=== PATIENT | female | born 1945 | race Caucasian/White ===

== ENCOUNTER → 2023-10-14 14:36 | Outpatient (REF) | payer OTHER, SELFPAY | LOC: WDC 14:36 | PROVIDERS: ATTENDING PHYSICIAN Obstetrics & Gynecology; FAMILY PHYSICIAN Internal Medicine | DX: Z12.31 Encounter for screening mammogram for malignant neoplasm of breast (principal) | CPT/HCPCS: 77063; 77067; 77080 ==

== ENCOUNTER 2023-11-15 10:57 | Emergency (ER) | payer OTHER, SELFPAY ==
[2023-11-15] VITALS (28 sets, daily range): BP systolic 74–124; BP diastolic 41–86
--- NOTE | 2023-11-15 11:44 | ED.GENMED ---
History of Present Illness
<Moni Ramirez MD, Resident - Last Filed: 11/15/23 15:51>
General
Chief Complaint: Heart Rate Problem
Source: patient
Time Seen by Provider: 11/15/23 11:18
History of Present Illness
History of Present Illness:
The patient is a 77-year-old female who has a PMH of paroxysmal A. fib previously on Eliquis currently. (follows with Dr. Julien for cardiology) She presented to ER today complaining from having AF on her apple watch, feeling some lightheaded
and shortness of breath for last couple of days since November 10. She reported that she had AF warnings her apple watch a few times in a day since November 10. She also reported feeling tired and not feeling like herself. She reported she was seen by her
ocean freight forwarder 2 weeks ago and her results were clean at that time and was scheduled for a routine ECHO on December 09. She has this problem for last 2,5 years after she had knee surgery and was hospitalized in April 2023 for same reason. She did
not receive any cardioversion before. Additionally, she reported that she gave a call to her ocean freight forwarder and was recommended to start retaking her metoprolol. ( Reports he takes half of 5 or 10 mg of metoprolol) She also started to take Eliquis
regularly BID for last couple days. It was decided to contact her ocean freight forwarder to discuss.
If applicable-neuro sx onset
Date of onset of symptoms: 12/12/23
Phy Exam
<Moni Ramirez MD, Resident - Last Filed: 11/15/23 15:51>
General Physical Exam
General Presentation: well appearing and moderate distress
General age: appears stated age
General Skin: warm
General Habitus: normal
General Mental: alert
General Hydration: appears well hydrated
Cardiovascular Exam
Cardiovascular Exam: no edema and no JVD
Pulmonary Exam
Pulmonary Exam: lungs clear, no rales, no crackles, no stridor and no wheezing
Neurological Exam
Neurological Exam: alert, oriented x3, CN II-XII intact, no motor deficits, no sensory deficits and speech normal
Musculoskeletal Exam
Musculoskeletal Exam: full ROM and no edema
Course
<Moni Ramirez MD, Resident - Last Filed: 11/15/23 15:51>
Orders/Labs/Results
Orders:
Orders
11/15/23 11:03
EKG [Electrocardiogram (*1)] Urgent
Reason for Study: Palpitations
EKG- Treatment ONCE
11/15/23 12:55
0.9% Sodium Chloride 1000 ml [Nss] 1,000 ml IV BOLUS
11/15/23 13:06
Propofol [Diprivan] 20 ml .ROUTE .STK-MED
11/15/23 13:26
EKG [Electrocardiogram (*1)] Urgent
Reason for Study: Atrial Fibrillation
EKG- Treatment ONCE
11/15/23 13:58
Basic Metabolic Panel Urgent
Complete Blood Count/No Diff Urgent
11/15/23 14:59
0.9% Sodium Chloride 1000 ml [Nss] 1,000 ml IV BOLUS
Abnormal Lab Results
11/15/23
13:58
Hgb 11.6 L g/dL
(12.0-16.0)
Hct 34.1 L %
(37.0-47.0)
RDW 14.6 H %
(11.5-14.5)
MPV 10.8 H fL
(7.4-10.4)
Chloride 109 H mmol/L
(98-107)
BUN 24 H mg/dl
(7-17)
11/15/23 13:58
11/15/23 13:58
Vital Signs
Initial and Last Documented VS:
Initial Vital Signs
Temp Pulse Resp BP Pulse Ox
36.7 C 91 18 124/79 98
11/15/23 11:03 11/15/23 11:03 11/15/23 11:03 11/15/23 11:03 11/15/23 11:03
Last Documented Vital Signs
Temp Pulse Resp BP Pulse Ox
36.7 C 62 12 94/61 97
11/15/23 11:03 11/15/23 16:05 11/15/23 16:05 11/15/23 16:05 11/15/23 16:05
<Mian Bess MD - Last Filed: 11/15/23 16:13>
Orders/Labs/Results
Orders:
Orders
11/15/23 11:03
EKG [Electrocardiogram (*1)] Urgent
Reason for Study: Palpitations
EKG- Treatment ONCE
11/15/23 12:55
0.9% Sodium Chloride 1000 ml [Nss] 1,000 ml IV BOLUS
11/15/23 13:06
Propofol [Diprivan] 20 ml .ROUTE .STK-MED
11/15/23 13:26
EKG [Electrocardiogram (*1)] Urgent
Reason for Study: Atrial Fibrillation
EKG- Treatment ONCE
11/15/23 13:58
Basic Metabolic Panel Urgent
Complete Blood Count/No Diff Urgent
11/15/23 14:59
0.9% Sodium Chloride 1000 ml [Nss] 1,000 ml IV BOLUS
Abnormal Lab Results
11/15/23
13:58
Hgb 11.6 L g/dL
(12.0-16.0)
Hct 34.1 L %
(37.0-47.0)
RDW 14.6 H %
(11.5-14.5)
MPV 10.8 H fL
(7.4-10.4)
Chloride 109 H mmol/L
(98-107)
BUN 24 H mg/dl
(10-28)
11/15/23 13:58
11/15/23 13:58
Vital Signs
Initial and Last Documented VS:
Initial Vital Signs
Temp Pulse Resp BP Pulse Ox
36.7 C 91 18 124/79 98
11/15/23 11:03 11/15/23 11:03 11/15/23 11:03 11/15/23 11:03 11/15/23 11:03
Last Documented Vital Signs
Temp Pulse Resp BP Pulse Ox
36.7 C 62 12 94/61 97
11/15/23 11:03 11/15/23 16:05 11/15/23 16:05 11/15/23 16:05 11/15/23 16:05
Procedures
<Mian Bess MD - Last Filed: 11/15/23 16:13>
Cardioversion
Indication:: Afib
Performed by:: Mian Bess MD
Synchronized?: Yes
Energy Used: 200 joules
Number of attempts: 1
Successful?: Yes
Complications: none
ASA Risk Score: Class II
Any reaction or bad outcome to prior sedation/anesthesia?: No history of a reaction
Sedation level to be attained: moderate
Chart and allergies reviewed: Yes
Patient reassessed prior to sedation: Yes
Time out completed at (validating right patient & procedure): 13:23
History of difficult intubation: No
Airway free of obstruction: Yes
Patient has a gag reflex: Yes
Patient is able to open mouth: Yes
Patient has no dentures: Yes
Patient has no loose teeth: Yes
Medication administered by Provider during Moderate Sedation: IV Propofol (mg)
Total dose administered: 40
Time drug administered: 13:23
Start Time: 13:23
Stop Time: 13:38
<Moni Ramirez MD, Resident - Last Filed: 11/15/23 15:51>
*Critical Care Note
Total Time (30-74mins, 75-104mins- exclusive of procedures): Not Applicable
ED Attending Note
<Moni Ramirez MD, Resident - Last Filed: 11/15/23 15:51>
-
Portions of this chart may have been created with voice recognition software.� Occasional wrong word or��sound alike� substitutions may have occurred due to the inherent limitations of voice recognition software.
<Mian Bess MD - Last Filed: 11/15/23 16:13>
ED Attending Note
Patient seen and examined by attending physician: Yes
I performed a history and physical exam of patient and discussed management with resident, I reviewed resident's note and agree with documented findings and plan of care.: Yes
ED Attending Note:
I have seen and evaluated the patient with a [id number] encounter. I have spoken to the resident and involved in the medical history, the physical exam, medical decision making.
Evaluation and management service: agree unless noted differently below.
Results interpretation: agree unless noted differently below.
Focused HPI: 78-year-old female with past medical history of atrial fibrillation on Eliquis, BIRD on CPAP who presents to the emergency room for evaluation of fatigue, shortness of breath, dizziness�she has an Apple Watch which told her that she is
in atrial fibrillation. Patient reports onset of symptoms 4 days ago; she says that her heart rate has been sporadic. She says that in the past her A-fib has been triggered by procedures but she does not know of any clear trigger for this episode.
She says that this episode was lasting longer than usual and so she came to the emergency room finally to be evaluated. She denies any chest pain. She denies any other complaints. She is on Eliquis 5 mg twice daily--she admits that for the past
few weeks she had only been taking her Eliquis 5 mg once daily but says that as soon as she realized she was in atrial fibrillation a few days ago she resumed it at twice daily.
Physical exam: Patient is awake and alert and not in any distress. Vital signs significant for soft blood pressure, heart rate 80-100. No cardiac rubs gallops or murmurs, irregularly irregular rhythm on cardiac auscultation. Lungs clear to
auscultation bilaterally. No edema in the extremities. Equal pulses in all extremities.
Medical Decision Makin-year-old female presents for evaluation of fatigue, dizziness and shortness of breath consistent with prior A-fib symptoms. Apple Watch notified her of onset of symptoms 4 days ago. She denies any chest pain. Vital
signs and exam as above. EKG confirms A-fib with controlled ventricular rate. She is on Eliquis although she admits that for the past few weeks she had only been taking it once daily; she insists however that when she started having symptoms and
noted A-fib on her Apple Watch 4 days ago she resumed it at 5 mg twice daily. Given this fact questionable whether she is a safe candidate for ED cardioversion�I called cardiology to discuss case and for recommendations regarding safety of ED
cardioversion given the above. With patient sure of onset and with consistent anticoagulation at the appropriate dosing since onset reasonable to cardiovert in the ED per cardiology. I had a long discussion with the patient�I explained to her that
her ventricular rate is controlled and that it would be very reasonable to do nothing and to observe her and have her follow-up with cardiology as an outpatient. I did offer cardioversion and explained the risks and benefits in detail. Patient
wishes to undergo ED cardioversion and so we will proceed with this; will check screening lab work.
Patient successfully cardioverted as documented procedure note. Mild periprocedural hypotension, treating with IV fluids. Patient feeling well and asymptomatic afterwards. Continue to monitor status post cardioversion. I did stress specifically
the importance of diligent compliance with anticoagulation at appropriate dosing after cardioversion today.
Patient remains asymptomatic and well-appearing; she did have a slightly soft blood pressure after cardioversion but symptoms resolved, up and walking around the room and going to the bathroom without any dizziness. Stable for discharge, once again
stressed importance of compliance with Eliquis and she will follow-up with cardiology. All questions answered.
Discharge Plan
Departure
Patient with high blood pressure during this ER visit?: No
Discharge Problem:
Atrial fibrillation status post cardioversion
Instructions: Atrial Fibrillation (DC)
Prescriptions:
No Action
multivitamin Tablet
1 tab PO DAILY
ascorbic acid (vitamin C) [Vitamin C] 500 mg Tablet
500 mg PO DAILY
fluoxetine 20 mg Tablet
20 mg PO Q48H
Eliquis 5 mg Tablet
5 mg PO BID
Probiotic 1 CAP
1 cap PO DAILY
cholecalciferol (vitamin D3) 10 mcg (400 unit) Tablet
10 mcg PO DAILY
sennosides [senna] 8.6 mg Tablet
17.2 mg PO BID Qty: 30 0RF
docusate sodium 100 mg Capsule
100 mg PO BID Qty: 30 0RF
acetaminophen [Tylenol] 325 mg tablet
650 mg PO Q4H PRN (Reason: mild pain) Qty: 60 0RF
Rx Instructions:
DO NOT exceed >4000 mg daily while on Lawrence.
1 Lawrence tab = 325 mg of Tylenol.
hydrocodone-acetaminophen 10-325 mg tablet
1 tab PO Q6H PRN (Reason: moderate-severe pain) Qty: 30 0RF
Rx Instructions:
1/2 tab for moderate pain, 1 if severe.
Dx lami. Ongoing therapy.
tizanidine 2 mg tablet
2 mg PO Q8H PRN (Reason: muscle spasticity) Qty: 20 0RF
Rx Instructions:
Caution with Lawrence - can cause drowsiness.
Take only as needed/as directed.
Referrals:
Ivonne Julien DO [Active] - Call in 1-3 days for appt
Noel Marr DO [Family Provider] -
Activity Restrictions/Additional Instructions:
Thank you for visiting the Emergency Department at [facility].
1. Please schedule a follow up appointment as directed. Call first thing tomorrow morning to make an appointment.
2. If indicated, please take your medications as instructed and indicated on discharge paperwork.
3. If any of your symptoms do not improve, or persist, or become more severe within 6-12 hours, please return to the emergency department for further care.
4. Please return to the emergency department if you develop a headache, neck pain/stiffness, fever greater than 100.4F, chest pain, shortness of breath, persistent nausea, vomiting, slurred speech, difficulty walking, numbness/tingling, weakness,
signs of infection or any other symptoms that are worrisome to you.
Please call [phone] if you have any questions.
Interventions
Interventions:
*Risk Screen - Suicide Last Done: 11/15/23 11:03
*General Assessment Last Done: 11/15/23 11:03
*Neglect/Abuse Screening Last Done: 11/15/23 11:03
*ED COVID-19 Vaccine History Last Done: 11/15/23 11:03
ED- Cardiac Assessment Last Done: 11/15/23 11:28
ED- Pulmonary Assessment Last Done: 11/15/23 11:28
Discharge Date and Time
Print Language: PARAGUAYAN
[2023-11-15] MEDS: NSS 1000 IV ×2 (12:55→15:00)
[2023-11-15 14:24] LABS: Hematocrit 34.1 % (37.0-47.0); Hemoglobin 11.6 g/dL (12.0-16.0); Mean Corpuscular Hgb 27.6 pg (27.0-31.0); Mean Platelet Volume 10.8 fL (7.4-10.4); Platelet Count 296 10^3/uL (130-400); Red Blood Cell Count 4.21 10^6/uL (4.20-5.40); Red Cell Dist. Width 14.6 % (11.5-14.5); White Blood Cell Count 6.9 10^3/uL (4.8-10.8)
[2023-11-15 14:29] LABS: Blood Urea Nitrogen 24 mg/dl (7-17); Calcium 8.8 mg/dl (8.4-10.2); Carbon Dioxide 23 mmol/L (22-30); Chloride 109 mmol/L (98-107); Glucose 93 mg/dl (70-99); Sodium 138 mmol/L (135-145); eGFR > 60.00
== END 2023-11-15 16:28 | disposition home or self-care (01) ==
LOC: EMR 10:57
PROVIDERS: EMERGENCY PHYSICIAN Emergency Medicine; FAMILY PHYSICIAN Internal Medicine
DX: I48.0 Paroxysmal atrial fibrillation (principal); Z79.01 Long term (current) use of anticoagulants
CPT/HCPCS: 99285; 92960; 96360; 96361; 99152; 80048; 85027; 93005

== ENCOUNTER → 2023-12-10 08:36 | Outpatient (REF) | payer OTHER, SELFPAY ==
[2023-12-10 12:22] LABS: Urine Albumin Negative (Neg - Trace); Urine Bilirubin Negative (Negative); Urine Character Slightly Cloudy (Clear); Urine Color Straw; Urine Glucose Negative (Negative); Urine Ketone Negative (Negative); Urine Leukocyte 2+ (Negative); Urine Nitrite Negative (Negative); Urine Occult Blood Negative (Negative); Urine Specific Gravity 1.015 (<1.030); Urine Urobilinogen Negative (Neg - 1+)
[2023-12-10 12:32] LABS: % Basophils 1.3 % (0-2); % Eosinophils 2.1 % (0-6); % Immature Granulocytes 0.2 % (0-0.5); % Lymphocytes 39.1 % (20.5-51.1); % Monocytes 5.1 % (1.7-9.3); % Neutrophils 52.2 % (42.2-75.2); Absolute Basophils 0.1 10^3/uL (0-0.2); Absolute Eosinophils 0.1 10^3/uL (0-0.7); Absolute Lymphocytes 2.1 10^3/uL (1.2-3.4); Absolute Monocytes 0.3 10^3/uL (0.1-0.6); Absolute Neutrophils 2.8 10^3/uL (1.4-6.5); Hemoglobin 12.1 g/dL (12.0-16.0); Mean Corp Hgb Conc. 32.7 g/dL (33.0-37.0); Mean Corpuscular Hgb 27.3 pg (27.0-31.0); Mean Corpuscular Volume 83.3 fL (81.0-99.0); Mean Platelet Volume 10.6 fL (7.4-10.4); Nucleated Red Blood Cells % 0 %; Platelet Count 290 10^3/uL (130-400); Red Blood Cell Count 4.44 10^6/uL (4.20-5.40); Red Cell Dist. Width 14.5 % (11.5-14.5); White Blood Cell Count 5.3 10^3/uL (4.8-10.8)
[2023-12-10 12:40] LABS: Urine Bacteria Moderate (Negative); Urine Squamous Cell >30 /LPF (Few)
[2023-12-10 12:41] LABS: Urine Red Blood Cell 0-2 /HPF (0-2)
[2023-12-10 12:48] LABS: ALT (SGPT) 23 U/L (0-35); AST (SGOT) 26 U/L (14-36); Albumin 3.9 g/dl (3.5-5.0); Alkaline Phosphatase 83 U/L (38-126); Blood Urea Nitrogen 22 mg/dl (7-17); Calcium 9.6 mg/dl (8.4-10.2); Carbon Dioxide 29 mmol/L (22-30); Chloride 105 mmol/L (98-107); Glucose 95 mg/dl (70-99); HDL Cholesterol 69 mg/dl; LDL Cholesterol, Calculated 132 mg/dl; Potassium 4.6 mmol/L (3.5-5.1); Sodium 142 mmol/L (135-145); Total Bilirubin 0.6 mg/dl (0.2-1.3); Total Cholesterol 221 mg/dl (50-199); Total Protein 6.2 g/dl (6.3-8.2); Triglyceride 100 mg/dl (10-149); Very Low Density Lipoprotein 20 mg/dl (0-30); eGFR > 60.00
[2023-12-10 13:14] LABS: TSH 2.55 uIU/ml (0.47-4.68)
[2023-12-10 14:36] LABS: Glycohemoglobin (HgbA1c) 5.5 % (4.0-5.6)
== END ==
LOC: HWRCS 08:36
PROVIDERS: ATTENDING PHYSICIAN Internal Medicine Cardiovascular Disease; FAMILY PHYSICIAN Internal Medicine
DX: I10 Essential (primary) hypertension (principal); I48.0 Paroxysmal atrial fibrillation; E78.2 Mixed hyperlipidemia; N32.81 Overactive bladder; R73.01 Impaired fasting glucose
CPT/HCPCS: 36415; 80053; 80061; 81003; 81015; 83036; 84443; 85025; 93306

== ENCOUNTER → 2024-05-26 08:05 | Outpatient (REF) | payer OTHER, SELFPAY | LOC: HWRAD 08:05 | PROVIDERS: ATTENDING PHYSICIAN Urology; FAMILY PHYSICIAN Internal Medicine | DX: N32.81 Overactive bladder (principal); M62.89 Other specified disorders of muscle; N95.2 Postmenopausal atrophic vaginitis | CPT/HCPCS: 76770; 76856 ==

== ENCOUNTER → 2024-07-08 11:16 | Outpatient (REF) | payer OTHER, SELFPAY ==
[2024-07-08 12:06] LABS: % Basophils 0.8 % (0-2); % Eosinophils 0.9 % (0-6); % Immature Granulocytes 0.3 % (0-0.5); % Lymphocytes 29.7 % (20.5-51.1); % Monocytes 4.2 % (1.7-9.3); % Neutrophils 64.1 % (42.2-75.2); Absolute Basophils 0.1 10^3/uL (0-0.2); Absolute Eosinophils 0.1 10^3/uL (0-0.7); Absolute Lymphocytes 2.7 10^3/uL (1.2-3.4); Absolute Monocytes 0.4 10^3/uL (0.1-0.6); Absolute Neutrophils 5.9 10^3/uL (1.4-6.5); Hematocrit 40.3 % (37.0-47.0); Hemoglobin 12.9 g/dL (12.0-16.0); Mean Corpuscular Volume 84.5 fL (81.0-99.0); Mean Platelet Volume 9.9 fL (7.4-10.4); Nucleated Red Blood Cells % 0 %; Platelet Count 305 10^3/uL (130-400); Red Blood Cell Count 4.77 10^6/uL (4.20-5.40); Red Cell Dist. Width 14.3 % (11.5-14.5); White Blood Cell Count 9.1 10^3/uL (4.8-10.8)
[2024-07-08 12:13] LABS: Urine Albumin Negative (Neg - Trace); Urine Bilirubin Negative (Negative); Urine Character Clear (Clear); Urine Color Yellow; Urine Glucose Negative (Negative); Urine Ketone Negative (Negative); Urine Leukocyte Negative (Negative); Urine Nitrite Negative (Negative); Urine Occult Blood Negative (Negative); Urine Urobilinogen Negative (Neg - 1+)
[2024-07-08 13:25] LABS: ALT (SGPT) 25 U/L (0-35); AST (SGOT) 22 U/L (14-36); Albumin 4.6 g/dl (3.5-5.0); Alkaline Phosphatase 96 U/L (38-126); Blood Urea Nitrogen 22 mg/dl (7-17); Carbon Dioxide 23 mmol/L (22-30); Chloride 106 mmol/L (98-107); Glucose 91 mg/dl (70-99); Potassium 4.3 mmol/L (3.5-5.1); Sodium 140 mmol/L (135-145); Total Bilirubin 0.6 mg/dl (0.2-1.3); Total Protein 6.9 g/dl (6.3-8.2); eGFR > 60.00
[2024-07-08 13:53] LABS: TSH Reflex To Free T4 2.36 uIU/ml (0.47-4.68)
[2024-07-08 14:12] LABS: Vitamin B12 691 pg/ml (239-931)
== END ==
LOC: REG 11:16
PROVIDERS: ATTENDING PHYSICIAN Nurse Practitioner Primary Care; FAMILY PHYSICIAN Internal Medicine
DX: R53.83 Other fatigue (principal); R53.1 Weakness
CPT/HCPCS: 36415; 80053; 81003; 82607; 84443; 85025

== ENCOUNTER → 2024-10-18 11:15 | Outpatient (REF) | payer OTHER, SELFPAY | LOC: WDC 11:15 | PROVIDERS: ATTENDING PHYSICIAN Obstetrics & Gynecology; FAMILY PHYSICIAN Internal Medicine | DX: Z12.31 Encounter for screening mammogram for malignant neoplasm of breast (principal) | CPT/HCPCS: 77063; 77067 ==